=== PATIENT | female | born 1970 | race Caucasian/White ===

== ENCOUNTER 2016-03-20 01:32 | Emergency (ER) | payer OTHER ==
[~2016-03-20] VITALS: Ht 160 cm; Wt 77.1 kg
[~2016-03-20 01:32] MED LIST: ACYCLOVIR 400400 MG PO; CLONAZEPAM 1 MG1 M1; CLONAZEPAM 1 MG1 M1 PO; HYDROCODONE-AP1 EAC6 PO; IBUPROFEN 600600 M1 PO; LEXAPRO 10 MG T10 M1 PO; NORCO 5-325 TA1 EACH PO; PREDNISONE 20 M20 M1 PO; UNKNOWN BP MED; VALIUM2 MG PO; VALTREX 500 MG500 M1
[2016-03-20 01:33] VITALS: BP 138/90
[2016-03-20] MEDS ORDERED: COZAAR 25 MG TA25 M1 PO (01:36)
== END 2016-03-20 02:13 | disposition home or self-care (01) ==
LOC: ER 01:32
DX: L02.412 Cutaneous abscess of left axilla (principal); F10.99 Alcohol use, unspecified with unspecified alcohol-induced disorder; I10 Essential (primary) hypertension; F32.9 Major depressive disorder, single episode, unspecified